=== PATIENT | female | born 1940 | race Hispanic/Latino ===

== ENCOUNTER 2021-05-17 09:48 | Emergency (ER) | payer MEDICARE ==
[~2021-05-17] VITALS: Ht 154.9 cm; Wt 54.9 kg
== END 2021-05-17 11:46 | disposition home or self-care (01) ==
LOC: FSED 10:11
DX: K62.5 Hemorrhage of anus and rectum (principal); E78.5 Hyperlipidemia, unspecified; E03.9 Hypothyroidism, unspecified
CPT/HCPCS: 80048; 99283